=== PATIENT | female | born 1965 | race Caucasian/White ===

== ENCOUNTER → 2016-12-05 | Outpatient (CLI) | payer OTHER ==
[~2016-12-05] MED LIST: CIPRO500 MG PO; CYMBALTA 30 MG30 MG PO; FLAGYL250 MG PO; LORTAB 7.5-3251 EACH PO; NORCO 5-325 TA1 EACH PO; POTASSIUM CHLO20 ME1 PO; PROVENTIL HFA 61 INH INH; REMERON45 MG PO; SYMBICORT 80-41 INHA INH; ZANAFLEX4 MG PO
== END ==
LOC: HEART 5 14:54
DX: J44.9 Chronic obstructive pulmonary disease, unspecified (principal)
CPT/HCPCS: 94010

== ENCOUNTER → 2016-12-10 | Outpatient (CLI) | payer OTHER | LOC: HEART 5 14:16 | DX: R91.8 Other nonspecific abnormal finding of lung field (principal) | CPT/HCPCS: 71020-FX ==